=== PATIENT | male | born 1970 | race African-American/Black ===

== ENCOUNTER 2022-09-12 22:32 | Emergency (ER) | payer MEDICAID, OTHER ==
[~2022-09-12] VITALS: Ht 170.2 cm; Wt 68.0 kg
[2022-09-12] MEDS ORDERED: DOCU100C36 PO (22:58)
[2022-09-12] MEDS ORDERED: MELO-107 PO (22:58)
[2022-09-12] MEDS ORDERED: ATOR80TA PO (22:58)
[2022-09-12] MEDS ORDERED: PHEN300C6 PO (22:58)
[2022-09-12] MEDS ORDERED: PHEN100C4 PO (22:58)
--- NOTE | 2022-09-12 23:17 | NUR ---
BIB ambulance from facility for seizure activity, placed into gown and on monitor on arrival, #18g established in right ac area, blood collected and sent to lab. Bedside EKG done for MD review, Patient has taken gown off and put his shirt back on. side rails up and padded, will continue to monitor.
--- NOTE | 2022-09-12 23:27 | NUR ---
Patient assisted to bathroom, urine collected at this time.
[2022-09-12 23:46] LABS: HEMATOCRIT 37.3 % (36.7-47.1); MEAN CORPUSCULAR HEMOGLOBIN 30.7 uug (23.8-33.4); MEAN CORPUSCULAR VOLUME 92.4 fL (73.0-96.2); PLATELET COUNT (AUTO) 210 K/uL (152-348)
[2022-09-12 23:47] LABS: *BILIRUBIN,URIN NEGATIVE (NEGATIVE); *BLOOD, URINE 1+ (NEGATIVE); *CLARITY,URINE CLEAR (CLEAR); *COLOR,URINE YELLOW (YELLOW); *KETONES,URINE NEGATIVE (NEGATIVE); *UROBILINOGEN,URINE 0.2 E.U./dl (NORMAL); LEUKOCYTE ESTERASE ,URINE NEGATIVE (NEGATIVE); NITRITE, URINE NEGATIVE (NEGATIVE); PH,URINE 6.5 (5.0-8.0); UGLUCOSE NEGATIVE (NEGATIVE)
[2022-09-12 23:57] LABS: CARBON DIOXIDE 26 mmol/L (21-32); CHLORIDE 101 mmol/L (98-107); CREATININE 0.9 mg/dL (0.6-1.3); GLUCOSE 146 mg/dL (74-106); POTASSIUM 3.4 mmol/L (3.5-5.1); UREA NITROGEN, BLOOD 24 mg/dL (7-18)
[2022-09-13 00:01] LABS: ETHANOL < 3 MG/DL (0-0)
[2022-09-13 00:03] LABS: ALANINE AMINOTRANSFERASE 68 U/L (16-63); ALKALINE PHOSPHATASE 128 U/L (50-136); ASPARTATE AMINOTRANSFERASE 31 U/L (15-37); TOTAL PROTEIN, SERUM 8.7 g/dL (6.4-8.2)
[2022-09-13 00:06] LABS: *AMPHETAMINE, URINE NEGATIVE (NEGATIVE); *CANNABINOID, URINE NEGATIVE (NEGATIVE); *COCCAINE, URINE NEGATIVE (NEGATIVE); *PHENCYCLIDINE SCREEN,URINE NEGATIVE (NEGATIVE)
[2022-09-13 00:15] LABS: WBC,URINE 0-3 /HPF (0-3)
[2022-09-13 00:16] LABS: *OPIATE, URINE NEGATIVE (NEGATIVE); BACTERIA,URINE NONE SEEN /HPF (NONE SEEN); SQUAMOUS EPITHELIAL CELL,UR FEW /HPF (NONE SEEN)
[2022-09-13 00:17] LABS: BILIRUBIN,DIRECT 0.1 mg/dL (0.0-0.2); BILIRUBIN,TOTAL 0.2 mg/dL (0.2-1.0); PHENYTOIN (DILANTIN) 13.2 ug/mL (10.0-20.0)
--- NOTE | 2022-09-13 01:30 | NUR ---
Report called to accepting nurse Jurado, patient remains stable at this time. ETA for pick-up 1.5 hours.
--- NOTE | 2022-09-13 01:30 | NUR ---
Called [facility] ambulance to transport patient back to [facility]. ETA is 1hr and 45mins.
--- NOTE | 2022-09-13 02:33 | NUR ---
Patient transport here, patient remains stable, ACI given to transport team.
[2022-09-13 02:34] VITALS: BP 143/58
== END 2022-09-13 02:35 ==
LOC: ER 22:39
DX: G40.909 Epilepsy, unspecified, not intractable, without status epilepticus (principal); F20.0 Paranoid schizophrenia; E78.5 Hyperlipidemia, unspecified; M25.50 Pain in unspecified joint; G89.29 Other chronic pain; M54.9 Dorsalgia, unspecified; Z79.899 Other long term (current) drug therapy
CPT/HCPCS: 36415; 85025; A4663; G0480